=== PATIENT | female | born 1955 | race Two or more races ===

== ENCOUNTER 2023-08-09 07:06 | Day surgery (SDC) | payer OTHER, SELFPAY ==
[2023-08-09] VITALS (13 sets, daily range): BP systolic 126–163; BP diastolic 65–82; BMI 25.1
[2023-08-09] MEDS: LOW STRENGTH ASPIRIN 324 MG PO (07:59)
[2023-08-09] MEDS: NSS 169 ML IV (08:02)
--- NOTE | 2023-08-09 09:38 | ITS.CL.CATH ---
[employer] - Catheterization
Cardiac Catheterization
Procedure Report:
CARDIAC CATHETERIZATION REPORT
Date of Procedure: 08/09/2023
Referring: Orlin Holland MD
Indication: Chest discomfort
HEMODYNAMIC DATA
AO: 142/85
LV: 142/16
LEFT VENTRICULOGRAPHY: Normal left-ventricular wall motion with EF 68%
CORONARY ANGIOGRAPHY
Dominance: Right
Left Main: Normal
LAD: Normal
Circumflex: Normal
RCA: Trivial luminal irregularities
Closure Device: None-procedure was performed via the right radial artery. The Roberto's test was normal prior to the procedure.
Radiation (mGy): 38.51
DAP (cm2.Gy): 3.3
Fluoroscopy time: 1.7 minutes
CONCLUSIONS
1: Normal left ventricular function with EF 68%
2: No evidence of significant CAD
Copy to: Orlin Holland MD, Hien Oseguera MD, PhD ([place], [place])
Ricky Zapien MD, [facility], [facility]
[2023-08-09 11:29] LABS: ACT-LR - POC 276 Seconds (116-155)
[2023-08-09 11:47] LABS: ACT-LR - POC 331 Seconds (116-155)
[2023-08-09 13:09] LABS: ACT-LR - POC > 397 Seconds (116-155)
== END 2023-08-09 12:35 | disposition home or self-care (01) ==
LOC: CATH 07:06
PROVIDERS: ATTENDING PHYSICIAN Internal Medicine Cardiovascular Disease; FAMILY PHYSICIAN Internal Medicine Cardiovascular Disease; OTHER PHYSICIAN Internal Medicine Cardiovascular Disease
DX: R07.89 Other chest pain (principal); E78.5 Hyperlipidemia, unspecified; I10 Essential (primary) hypertension
CPT/HCPCS: 93458; C1894; Q9967